=== PATIENT | female | born 1965 | race Caucasian/White ===

== ENCOUNTER 2020-03-06 16:18 | Inpatient (IN) | payer OTHER ==
[~2020-03-06] VITALS: Ht 30.5 cm; Wt 5.0 kg
[2020-03-06] MEDS ORDERED: PREVACID30 MG PO (16:53)
[2020-03-06] MEDS ORDERED: CLARITHROMYCIN500 M1 PO (16:54)
[2020-03-06] MEDS ORDERED: AMOXICILLIN500 M1 PO (16:54)
--- NOTE | 2020-03-06 16:54 | NUR ---
SE RECIBE PACIENTE ALERTA, ORIENTADA X ESFERAS , REFIERE TENER DOLOR ABDOMINAL HACE 2 SEMANAS REFIERE SENTIRSE DEBIL NO PUEDE COMER. SE UBICA EN AREA OBSERVACION. SE UBICA EN ANGELINE # 09, CON BARRANDAS ELEVADAS A NIVEL MAS BAJO.
--- NOTE | 2020-03-06 17:31 | NUR ---
PACIENTE ALERTA Y ORIENTADA EN [facility] ESFERAS. DAKOTAH MCMANUS ORIENTA A PACIENTE SOBRE PROCEDIMIENTO Y TX, REFIERE ENTENDER. EXTRAE MUESTRAS DE LABORATORIO CON MEDIDAS ASEPTICAS Y ADMINISTRA MEDICAMENTOS KARI ORDEN MEDICA.
--- NOTE | 2020-03-06 20:39 | NUR ---
DR FAN ORIENTA PTE SOBRE PROCESO DE TRANSFUSION,LA MISMA REFIERE ENTENDER Y FIRMA DOCUMENTO DE AUTORIZACION,SE DON TUBOS PILOTOS PARA 3 UNIDADES DE PRBC,SE CANALIZA BAJO MEDIDAS ASEPTICAS,SE NOTIFICA A BANCO DE [place] DE AUXILIO M[place] A MS AVITIA.
== END 2020-03-07 19:36 | disposition home or self-care (01) | DRG 811 ==
LOC: ER 16:18 → MEDJ 22:08 → MEDI 22:08 → MEDJ 03-07 01:40
PROVIDERS: ADMIT Internal Medicine; ATTEND Internal Medicine
PROC: 30233N1 Transfusion of Nonautologous Red Blood Cells into Peripheral Vein, Percutaneous Approach (ICD-10-PCS; principal; 2020-03-06)
PROC: 8E0ZXY6 Isolation (ICD-10-PCS; 2020-03-07)
DX: D50.0 Iron deficiency anemia secondary to blood loss (chronic) (principal); U07.1 COVID-19; Z20.828 Contact with and (suspected) exposure to other viral communicable diseases; K29.60 Other gastritis without bleeding

== ENCOUNTER 2020-03-25 09:22 | Outpatient (CLI) | payer OTHER ==
[~2020-03-25 09:22] MED LIST: AMOXICILLIN500 M1 PO; CLARITHROMYCIN500 M1 PO; PREVACID30 MG PO
== END 2020-03-25 11:18 | disposition home or self-care (01) ==
LOC: NUCLEAR 09:22
PROVIDERS: ATTEND Colon & Rectal Surgery
DX: C18.4 Malignant neoplasm of transverse colon (principal)
CPT/HCPCS: 78815; A9552

== ENCOUNTER 2020-03-27 09:12 | Inpatient (IN) | payer OTHER ==
[~2020-03-27] VITALS: Ht 30.5 cm; Wt 5.0 kg
[2020-04-06] MEDS ORDERED: PEPCID AC20 MG PO (09:50)
[2020-04-06] MEDS ORDERED: CARAFATE1 GM PO (09:50)
[2020-04-06] MEDS ORDERED: FENTANYL1 EAC3 TD (09:51)
== END 2020-04-06 14:29 | disposition home or self-care (01) | DRG 329 ==
LOC: ER 09:12 → SEC-K 12:29 → SURG 12:29
PROVIDERS: ADMIT Surgery; ATTEND Surgery
PROC: 0WBF4ZX Excision of Abdominal Wall, Percutaneous Endoscopic Approach, Diagnostic (ICD-10-PCS; 2020-03-30)
PROC: 3E1M38X Irrigation of Peritoneal Cavity using Irrigating Substance, Percutaneous Approach, Diagnostic (ICD-10-PCS; 2020-03-30)
PROC: 0D1B4Z4 Bypass Ileum to Cutaneous, Percutaneous Endoscopic Approach (ICD-10-PCS; principal; 2020-03-30 14:00)
DX: C78.6 Secondary malignant neoplasm of retroperitoneum and peritoneum (principal); U07.1 COVID-19; C78.4 Secondary malignant neoplasm of small intestine; R18.0 Malignant ascites; G47.33 Obstructive sleep apnea (adult) (pediatric); D64.89 Other specified anemias
CPT/HCPCS: 74182

== ENCOUNTER 2020-04-07 10:08 | Emergency (ER) | payer OTHER ==
[~2020-04-07] VITALS: Ht 154.9 cm; Wt 51.7 kg
[~2020-04-07 10:08] MED LIST changes: +CARAFATE1 GM PO; +FENTANYL1 EAC3 TD; +PEPCID AC20 MG PO
== END 2020-04-07 13:09 | disposition home or self-care (01) ==
LOC: ER 10:08
DX: I87.2 Venous insufficiency (chronic) (peripheral) (principal); R60.0 Localized edema; E87.79 Other fluid overload